=== PATIENT | male | born 1970 | race Two or more races ===

== ENCOUNTER 2018-06-19 08:45 | Emergency (ER) | payer BC ==
[2018-06-19 09:01] VITALS: BP 147/84; PULSE 77; TEMP 98.4; BMI 25.0
--- NOTE | 2018-06-19 09:26 | PDOC ---
History of Present Illness - General Chief Complaint: Sore Throat Stated Complaint: SORE THROAT Time Seen by Provider: 06/19/18 09:10 History Source: Patient Exam Limitations: No Limitations - History of Present Illness Initial Comments: 06/19/18 09:18 sore throat pain 2 days. States all of family is ill with URI symptoms, and son is being treated for sinus infection with antibiotics starting yesterday. Was concerned had same type of illness. States has significant postnasal drainage and sore throat pain is worse in the morning. Has had no fever. 06/19/18 09:56 Timing/Duration: unsure, 24 hours Severity: mild, moderate Associated Symptoms: reports: malaise. denies: cough, fever/chills Past History - Travel Traveled outside of the country in the last 30 days: No Close contact w/someone who was outside of country & ill: No - Past Medical History Allergies/Adverse Reactions: Allergies Allergy/AdvReac Type Severity Reaction Status Date / Time No Known Allergies Allergy Verified 06/19/18 08:57 Home Medications: Ambulatory Orders NK [No Known Home Medication] 06/19/18 Cardiac Disorders: Yes (STRNT PLACEMENT) COPD: No Hypercholesterolemia: Yes - Surgical History Cardiac Surgery: Yes (STENT) - Immunization History Td Vaccination: No TDAP Vaccination: No Immunization Up to Date: No - Suicide/Smoking/Psychosocial Hx Smoking History: Never smoked Have you smoked in the past 12 months: No Number of Cigarettes Smoked Daily: 0 If you are a former smoker, when did you quit?: 2009 Information on smoking cessation initiated: No Hx Alcohol Use: No Drug/Substance Use Hx: No Substance Use Type: None Review of Systems - Review of Systems Able to Perform ROS?: Yes Is the patient limited Austrian proficient: Yes Constitutional: Yes: Symptoms Reported, See HPI, Malaise. No: Fever HEENTM: Yes: Symptoms Reported, See HPI, Nose Congestion, Throat Pain, Throat Swelling, Difficulty Swallowing Respiratory: Yes: Symptoms reported, See HPI, Cough. No: Wheezing : Yes: Symptoms Reported Musculoskeletal: No: Symptoms Reported Integumentary: Yes: See HPI. No: Symptoms Reported All Other Systems: Reviewed and Negative *Physical Exam - Vital Signs Last Vital Signs Temp Pulse Resp BP Pulse Ox 98.4 F 77 18 147/84 100 06/19/18 08:58 06/19/18 08:58 06/19/18 08:58 06/19/18 08:58 06/19/18 08:58 - Physical Exam General Appearance: Yes: Nourished, Appropriately Dressed, Mild Distress HEENT: positive: SONIYA, TMs Normal (congested but landmarks easily visualized), Pharynx Normal, Pharyngeal Erythema, Nasal Congestion, Rhinorrhea. negative: Tonsillar Exudate, Sinus Tenderness Neck: positive: Supple. negative: Lymphadenopathy (R), Lymphadenopathy (L) Respiratory/Chest: positive: Lungs Clear, Normal Breath Sounds Gastrointestinal/Abdominal: positive: Soft. negative: Tender Extremity: positive: Normal Inspection, Normal Range of Motion Integumentary: positive: Dry, Warm, Pale Neurologic: positive: wash test checker II-XII NML intact, Fully Oriented, Alert, Normal Mood/ Affect, Normal Response, Motor Strength 12/23 Medical Decision Making - Medical Decision Making 06/19/18 10:40 Rapid strep test negative, no evidence of significant bacterial infection therefore we'll wait and treat conservatively *DC/Admit/Observation/Transfer Diagnosis at time of Disposition: Common cold virus - Discharge Dispostion Disposition: HOME Condition at time of disposition: Stable Decision to Admit order: No - Referrals - Patient Instructions Printed Discharge Instructions: DI for Viral Upper Respiratory Infection -- Adult Additional Instructions: Rest, drink lots of fluids: Teas, water, soups, Pedialyte Saltwater gargles Steamy showers/seem to face break up mucus Avoid contact with others until fevers and cough resolved Lots of handwashing and good hygiene Continue [id number] medications for symptomatic relief Tylenol or Motrin for fever and pain Followup with private physician in one to 2 days as needed Return to emergency department for worsened symptoms, fevers, dehydration - Post Discharge Activity Forms/Work/School Notes: Back to Work
== END 2018-06-19 10:39 | disposition home or self-care (01) ==
LOC: JERFT 08:45 → JER 08:45 → JERFT 10:39
DX: J00 Acute nasopharyngitis [common cold] (principal); B97.89 Other viral agents as the cause of diseases classified elsewhere; E78.00 Pure hypercholesterolemia, unspecified; I25.10 Atherosclerotic heart disease of native coronary artery without angina pectoris; Z95.5 Presence of coronary angioplasty implant and graft
CPT/HCPCS: 87070; 87430; 99281-25

== ENCOUNTER 2018-10-01 08:10 | Emergency (ER) | payer BC ==
[2018-10-01 08:20] VITALS: BP 136/81; PULSE 98; TEMP 98; BMI 24.3
--- NOTE | 2018-10-01 08:55 | PDOC ---
History of Present Illness - General Chief Complaint: Cold Symptoms Stated Complaint: FLU SYMPTOMS Time Seen by Provider: 10/01/18 08:41 History Source: Patient Exam Limitations: No Limitations - History of Present Illness Initial Comments: 10/01/18 08:45 Had flu and cold symptoms last week that were resolved with ibuprofen, states was well for one day but then yesterday had another acute onset of chills, fevers, body aches, runny nose and mild sore throat pain. States 3 family members have influenza Timing/Duration: reports: getting worse Severity: reports: mild, moderate Associated Symptoms: reports: earache, facial pain, fever/chills, muscle aches, nasal congestion, nasal drainage, sore throat Past History - Travel Traveled outside of the country in the last 30 days: No Close contact w/someone who was outside of country & ill: No - Past Medical History Allergies/Adverse Reactions: Allergies Allergy/AdvReac Type Severity Reaction Status Date / Time No Known Allergies Allergy Verified 10/01/18 08:20 Home Medications: Ambulatory Orders Oseltamivir Phosphate [Tamiflu -] 75 mg PO BID #10 capsule 10/01/18 Cardiac Disorders: Yes (STRNT PLACEMENT) COPD: No Hypercholesterolemia: Yes - Surgical History Cardiac Surgery: Yes (STENT) - Immunization History Td Vaccination: No TDAP Vaccination: No Immunization Up to Date: No - Suicide/Smoking/Psychosocial Hx Smoking History: Never smoked Have you smoked in the past 12 months: No Number of Cigarettes Smoked Daily: 0 If you are a former smoker, when did you quit?: 2009 Information on smoking cessation initiated: No Hx Alcohol Use: No Drug/Substance Use Hx: No Substance Use Type: None Review of Systems - Review of Systems Able to Perform ROS?: Yes Is the patient limited Italian proficient: Yes Constitutional: Yes: Symptoms Reported, See HPI, Fever, Malaise Respiratory: Yes: Symptoms reported, See HPI, Cough. No: Wheezing ABD/GI: No: Symptoms Reported Musculoskeletal: Yes: Symptoms Reported, See HPI, Muscle Pain, Muscle Weakness All Other Systems: Reviewed and Negative *Physical Exam - Vital Signs Last Vital Signs Temp Pulse Resp BP Pulse Ox 98.0 F 98 H 16 136/81 100 10/01/18 08:13 10/01/18 08:13 10/01/18 08:13 10/01/18 08:13 10/01/18 08:13 - Physical Exam Comments: 10/01/18 08:46 GENERAL: [The child is awake, alert, and appropriately interactive.] EYES: [The pupils are equal, round, and reactive to light, with clear, conjunctiva.but glassy] NOSE: [The nose with clear drainage EARS: [The ear canals and tympanic membranes are congested but landmarks easily visualed ] THROAT: [The oropharynx is clear with erythema, no exudates. The mucous membranes are moist.] NECK: [The neck is supple with mildly tender adenopathy, no menigemous] CHEST: [The lungs are coarse but clear without crackles, or wheezes.] HEART: [Heart is regular rhythm, with normal S1 and S2, no murmurs.] ABDOMEN: [The abdomen is soft and nontender with normal bowel sounds. There is no organomegaly and no mass. There is no guarding or rebound.] EXTREMITIES: [Extremities are normal.] NEURO: [Behavior is normal for age.cranky but easily,m Tone is normal.] SKIN: [Skin is unremarkable without rash or swelling. There is no bruising, and there are no other signs of injury.] General Appearance: Yes: Nourished, Appropriately Dressed. No: Apparent Distress HEENT: positive: SONIYA, Pharyngeal Erythema (faint erythema without exudate), Rhinorrhea. negative: TMs Normal (congested but landmarks easily visualized) Neck: positive: Supple. negative: Tender, Lymphadenopathy (R), Lymphadenopathy (L) Respiratory/Chest: positive: Lungs Clear, Normal Breath Sounds Cardiovascular: positive: Regular Rhythm Gastrointestinal/Abdominal: positive: Soft. negative: Tender Musculoskeletal: positive: Vertebral Tenderness Extremity: positive: Normal Capillary Refill Integumentary: positive: Normal Color, Dry, Warm, Pale Neurologic: positive: investor relations specialist II-XII NML intact, Fully Oriented, Alert, Normal Mood/ Affect, Normal Response, Motor Strength 5/5 Moderate Sedation - Procedure Monitoring Vital Signs: Procedure Monitoring Vital Signs Temperature 98.0 F 10/01/18 08:13 Pulse Rate 98 H 10/01/18 08:13 Respiratory Rate 16 10/01/18 08:13 Blood Pressure 136/81 10/01/18 08:13 O2 Sat by Pulse Oximetry (%) 100 10/01/18 08:13 Progress Note - Progress Note Progress Note: Upper respiratory infection, probable influenza as all of family is ill with same. Will treat with Tamiflu *DC/Admit/Observation/Transfer Diagnosis at time of Disposition: Influenzal acute upper respiratory infection - Discharge Dispostion Disposition: HOME Condition at time of disposition: Stable Decision to Admit order: No - Prescriptions Prescriptions: Oseltamivir Phosphate [Tamiflu -] 75 mg PO BID #10 capsule - Referrals - Patient Instructions Printed Discharge Instructions: DI for Influenza -- Adult Additional Instructions: Rest, drink lots of fluids: Teas, water, soups, Pedialyte Saltwater gargles Steamy showers/seem to face break up mucus Old-fashioned treatments help! Avoid contact with others until fevers and cough resolved as this is very contagious Lots of handwashing and good hygiene Continue [id number] medications for symptomatic relief Tylenol or Motrin for fever and pain Take all of Tamiflu as directed: 1 tab every 12 hours for 5 days Followup with private physician in one to 2 days as needed or if worsening Return to emergency department for worsened symptoms, fevers, dehydration Influenza takes between 5 and 7 days for resolution To not participate in any activity, work, or school until fevers and cough are gone for at least one day - Post Discharge Activity Forms/Work/School Notes: Back to Work
== END 2018-10-01 09:01 | disposition home or self-care (01) ==
LOC: JERFT 08:10
DX: J11.1 Influenza due to unidentified influenza virus with other respiratory manifestations (principal); E78.00 Pure hypercholesterolemia, unspecified; I25.10 Atherosclerotic heart disease of native coronary artery without angina pectoris; Z95.5 Presence of coronary angioplasty implant and graft
CPT/HCPCS: 99281-25

== ENCOUNTER 2019-07-11 06:23 | Emergency (ER) | payer BC ==
[2019-07-11 06:41] VITALS: BP 135/91; PULSE 88; TEMP 98.3; BMI 23.6
--- NOTE | 2019-07-11 07:15 | PDOC ---
History of Present Illness <Km Petty - Last Filed: 07/11/19 07:53> - History of Present Illness Initial Comments: HPI: 49yo M with PMH of HLD, CAD s/p 1 stent presenting with congestion x 3 weeks. He presented to an urgent care when his symptoms started and was given a nasal spray. This spray helped, however, patient reports waking up with green mucus coming out of his nose for the past two days. 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 Does not currently have a primary care doctor. States his 6yo son was recently diagnosed with strep throat. Patient is without throat complaints except for minor irritation which he attributes to post-nasal drip. Denies fevers, chills, chest pain, or shortness of breath. PCP: none Cardio: Dr. Dasilva ROS: Constitutional: no fever, no chills HEENT: no ear pain, +congestion Cardiovascular: no chest pain, no palpitations Respiratory: no cough, no shortness of breath Gastrointestinal: no abdominal pain, no nausea Genitourinary: no dysuria, no hematuria Musculoskeletal: no myalgia, no arthralgia Skin: no rash, no itching Neurologic: no headache, no weakness PE: General: Awake, alert, and fully oriented, in no acute distress Head: No signs of trauma Eyes: EOMI, sclera anicteric ENT: Moist mucus membranes, mild erythema in nares, uvula midline, no oral lesions, no facial pain Neck: Normal ROM, supple Lungs: Lungs clear, Normal breath sounds Cardio: Regular rhythm, S1 and S2 present Abdomen: Soft, nontender. No guarding, no rebound, no masses Extremities: Normal range of motion, Distal pulses present SKIN: Warm, Dry, normal turgor Neurologic: Cranial nerves II through XII grossly intact. Normal speech ED Course/MDM: DDX including but not limited to URI, viral syndrome, sinusitis, allergies Counseled symptomatic control for likely viral sinusitis: Flonase BID and netipot once a day I have low suspicion for bacterial infection as mucus does not sound profuse/ unilateral Referral to primary care physician as patient does not have one 07/11/19 07:45 <Lesa Fournier - Last Filed: 07/11/19 08:21> - General Chief Complaint: Cold Symptoms Stated Complaint: SINUS INFECTION Time Seen by Provider: 07/11/19 07:14 Past History <Km Petty - Last Filed: 07/11/19 07:53> - Past Medical History Cardiac Disorders: Yes (STRNT PLACEMENT) COPD: No Hypercholesterolemia: Yes - Surgical History Cardiac Surgery: Yes (STENT) - Immunization History Td Vaccination: No TDAP Vaccination: No Immunization Up to Date: No - Psycho Social/Smoking Cessation Hx Smoking History: Never smoked Have you smoked in the past 12 months: No Number of Cigarettes Smoked Daily: 0 If you are a former smoker, when did you quit?: 2009 Information on smoking cessation initiated: No Hx Alcohol Use: No Drug/Substance Use Hx: No Substance Use Type: None <Lesa Fournier - Last Filed: 07/11/19 08:21> - Past Medical History Allergies/Adverse Reactions: Allergies Allergy/AdvReac Type Severity Reaction Status Date / Time No Known Allergies Allergy Verified 07/11/19 06:39 Home Medications: Ambulatory Orders Ezetimibe/Simvastatin [Vytorin 10-40 mg Tablet] 1 each PO DAILY 07/11/19 Niacin [Niaspan] 1,500 mg PO DAILY 07/11/19 *Physical Exam - Vital Signs Last Vital Signs Temp Pulse Resp BP Pulse Ox 98.3 F 88 20 135/91 99 07/11/19 06:39 07/11/19 06:39 07/11/19 06:39 07/11/19 06:39 07/11/19 06:39 <Km Petty - Last Filed: 07/11/19 07:53> - Vital Signs Last Vital Signs Temp Pulse Resp BP Pulse Ox 98.3 F 88 20 135/91 99 07/11/19 06:39 07/11/19 06:39 07/11/19 06:39 07/11/19 06:39 07/11/19 06:39 <Lesa Fournier - Last Filed: 07/11/19 08:21> Discharge <Km Petty - Last Filed: 07/11/19 07:53> - Discharge Information Problems reviewed: Yes <Lesa Fournier - Last Filed: 07/11/19 08:21> - Discharge Information Clinical Impression/Diagnosis: Viral syndrome Condition: Stable Disposition: HOME - Follow up/Referral Referrals: [facility] [Provider Group] Chicho Patterson MD [Staff Physician] - - Patient Discharge Instructions Patient Printed Discharge Instructions: DI for Viral Upper Respiratory Infection -- Adult Additional Instructions: You came into the emergency department with congestion. Your history and physical exam did not indicate acute pathology. Use [id number] Flonase twice a day and Netipot once a day to help with your symptoms. Continue [id number] medications for symptomatic relief Saltwater gargles, Steamy showers can help break up mucus Lots of handwashing and good hygiene Tylenol or Motrin as needed for pain Continue taking home medications as prescribed by your physician. Follow-up with a primary care provider this week to discuss this ED visit and to further evaluate your symptoms. Your workup is not complete until you do so. You have been referred to the [facility] in case you do not have a primary care doctor. Call and make an appointment at the number provided. Immediate medical attention is required if you have: fever over 100.4 F, any chest pain, palpitations, shortness of breath, severe headaches, changes in vision, episodes of fainting, focal numbness or weakness, any severe abdominal pain, any black tarry stool, or any new or concerning symptoms. If you think you are having an emergency, call for emergency medical services or present to the emergency department right away.
--- NOTE | 2019-07-11 07:50 | PDOC ---
Attending Attestation - Resident Resident Name: Lesa Fournier - ED Attending Attestation I have performed the following: I have examined & evaluated the patient, The case was reviewed & discussed with the resident, I agree w/resident's findings & plan, Exceptions are as noted - HPI HPI: 07/11/19 07:50 49 years old past medical history significant for CAD presents to the ED with several week history of nasal congestion and slight sinus pain no fever not unilateral no green discharge Symptoms are mild persistent constant no exacerbating relieving factors he has been taking a nasal spray with no significant relief4 - Physicial Exam PE: 07/11/19 07:51 Vitals: Triage Vital signs reviewed General Appearance: No acute distress, well nourished well developed, Head: Atraumatic, mild sinus ttp Eyes: Pupils equal reactive round, extraocular movement intact Nose: Nares patent bilaterally; no nasal congestion Throat: Posterior oropharynx without erythema, mucous membranes moist, Neck: Supple; no Nucal rigidity Chest Wall: Nontender Cardiac: Regular rate and rhythym, no murmurs, no rubs, no gallops, Lungs: Clear to auscultation bilateral, good air movement bilaterally, Abdomen: Soft, non distended, normal bowel sounds, non tender to palpation Extremities: Full range of motion to all extremities, no cyanosis, clubbing, or edema Psych: Normal mood, normal affect 07/11/19 13:35 - Medical Decision Making 07/11/19 13:35 Well-appearing no apparent distress history and examination consistent with viral sinusitis will recommend Sydnee pot Flonase continue antihistamine Patient will follow-up with ENT will return to ED for any fever severe worsening symptoms or for any concerns.
== END 2019-07-11 08:05 | disposition home or self-care (01) ==
LOC: JER 06:23
DX: J01.90 Acute sinusitis, unspecified (principal); B97.89 Other viral agents as the cause of diseases classified elsewhere; I25.10 Atherosclerotic heart disease of native coronary artery without angina pectoris; Z95.5 Presence of coronary angioplasty implant and graft
CPT/HCPCS: 99281-25